=== PATIENT | male | born 1940 | race Caucasian/White ===

== ENCOUNTER → 2017-01-14 08:39 | Outpatient (CLI) | payer MEDICARE, OTHER ==
[2013-10-27 09:25] VITALS: BMI 33.3
[~2017-01-14 08:39] MED LIST: DIFLUCAN100 MG PO; EXCEDRIN PM PO; FISH OIL 1,2001 CA1 PO; FLEXERIL10 MG PO; LOTENSIN HCT 201 TA1 PO; MAXZIDE-25 MG T1 TAB PO; NORCO 10/325 TA1 TA1 PO; PRILOSEC20 MG PO; VITAMIN B-12 PO; VITAMIN D31000 UNIT PO; VITAMIN PO; XANAX0.25 MG PO; ZOLOFT25 MG PO; ZYLOPRIM300 MG PO
[2017-01-14 11:11] LABS: ALBUMIN 3.4 g/dL (3.4-5.0); BILIRUBIN - DIRECT 0.13 mg/dL (0.00-0.30); BILIRUBIN - INDIRECT 0.47 mg/dL (0.00-1.00); BILIRUBIN - TOTAL 0.6 mg/dL (0.2-1.3); PROTEIN - SERUM 7.1 g/dL (6.4-8.2)
== END | disposition home or self-care (01) ==
LOC: D.RT 08:39
PROVIDERS: Internal Medicine Pulmonary Disease
DX: J84.10 Pulmonary fibrosis, unspecified (principal)

== ENCOUNTER → 2017-06-17 12:07 | Outpatient (CLI) | payer MEDICARE, OTHER ==
[2013-10-27 09:25] VITALS: BMI 33.3
== END | disposition home or self-care (01) ==
LOC: D.RAD 11:15
DX: J95.851 Ventilator associated pneumonia (principal)

== ENCOUNTER → 2017-10-07 10:14 | Outpatient (CLI) | payer MEDICARE, OTHER ==
[2013-10-27 09:25] VITALS: BMI 33.3
[~2017-10-07 10:14] MED LIST changes: +BAYER CHEWABLE81 MG PO; +ELIQUIS2.5 MG PO; +GABAPENTIN100 MG PO; +LIPITOR20 MG PO; +MELATONIN10 M1 PO; +MIRALAX17 GM PO; +NAPROXEN SODIU550 M1 PO; +PLAVIX75 MG PO; +PREDNISONE10 MG PO; +XARELTO15 MG PO
[2018-01-12 00:16] VITALS: BMI 28.1
== END | disposition home or self-care (01) ==
LOC: D.RAD 08-12 10:15
DX: J84.10 Pulmonary fibrosis, unspecified (principal)

== ENCOUNTER 2018-01-07 07:52 | Inpatient (IN) | payer MEDICARE, OTHER ==
[~2018-01-07] VITALS: Ht 190.5 cm; Wt 102.1 kg
--- NOTE | ~2018-01-07 | HEMODYNAMI ---
PATIENT:RITA AVILA MEDICAL RECORD: [id number] : 38 LOCATION:[address] [facility]# [id number] ADMISSION DATE: 01/08/18 Generatedon:01/10/20188:46 Patient name: RITA AVILA Patient #: [id number] SS N: : 1940 Date of study: 01/10/2018 Page: Of Hemodynamic Procedure Report Patient Data Patient Demographics Procedure consent was obtained First Name: RITA Gender: Male Last Name: AUSTIN : 1940 Patient #: [id number] Age: 77 year(s) Race: Unknown Additional ID: [id number] Contact details [address]: [address] [place] [address] State: [place] City: [place] Zip code: [address] Past Medical History Allergies: No known allergies Admission Admission Data Admission Date: 01/08/2018 Admission Time: 9:14 Room #: D2125 Lab Results Lab Result Date: 01/10/2018 Lab Result Time: 4:49 Biochemistry Name Units Result Min Max BUN mg/dl 23 --(----)-* 7 18 Creatinine mg/dl 1 --(--*-)-- 0.6 1.3 CBC Name Units Result Min Max Hematocrit % 39 *-(----)-- 42 54 Hemoglobin g/dl 13.1 -*(----)-- 13.5 17.5 Procedure Procedure Types Cath Procedure Diagnostic Procedure LHC LH w/Coronaries PCI Procedure Coronary Stent Coronary Stent Initial Miscellaneous Procedures Moderate Sedation up to 15 minutes Procedure Description Procedure Date Procedure Date: 01/10/2018 Procedure Start Time: 8:16 Procedure End Time: 8:44 Procedure Staff Name Function Colby Servin MD Performing Physician Renny Cr RT Monitor Gina Maza RT Scrub Vanessa Urrutia RN Nurse Procedure Data Cath Procedure Fluoroscopy Diagnostic fluoroscopy Total fluoroscopy Time: 6.4 time: 6.4 min min Diagnostic fluoroscopy Total fluoroscopy dose: dose: 1689 mGy 1689 mGy Contrast Material Contrast Material Type Amount (ml) Isovue 300 94 Entry Location Entry Primary Successful Side Size Upsize Upsize Entry Closure Donovan ccessful Closure Location (Fr) 1 (Fr) 2 (Fr) Remarks Device Remarks Radial Right 6 Fr Mechanical artery Short Compression Estimated blood loss: 10 ml Diagnostic catheters Device Type Used For End Catheter Placement DIAGNOSTIC Anthony 110cm 5 Procedure Fr catheter ([id number]) Procedure Complications No complications Procedure Medications Medication Administration Route Dosage Oxygen NC 3 l/min Lidocaine 2% added to field 20 Heparin Flush Bag added to field 2 bags (1000units/500ml NS) 0.9% NaCl I.V. 100 ml/hr Versed I.V. 1 mg Fentanyl I.V. 25 mcg Radial Cocktail I.A. 1 syringe (Verapomil 2mg/Nitro 400mcg/Heparin 1500units) Angiomax (bolus) I.V. 15 ml Angiomax Drip I.V. drip 35.7 ml/hr (250mg/50ml NS) (Standard) Angiomax Drip 35.7 ml/hr (250mg/50ml NS) (Standard) Plavix P.O. 600 mg Hemodynamics Rest HGB: 13.1 (g/dl) Heart Rate: 38 (bpm) Pressure Samples Time Site Value (mmHg) Purpose Heart Use Rate(bpm) 8:19 AO 94/56(74) Pullback 85 8:19 LV 100/4,4 Pullback 85 Gradients Valve Time Site 1 Site 2 Mean SEP/DFP Peak To Heart Use (mmHg) (sec/min) Peak Rate (mmHg) (bpm) Aortic 8:19 LV AO 15 17 6 85 100/4,4 94/56(74) Calculations Valve P-P Mean Valve Index Valve Source Name Gradient Area Flow (cm2) Aortic 6 15 6 15 Snapshots Pre Cath Intra NCS Post Cath Vital Signs Time Heart Resp SPO2 etCO2 NIBP (mmHg) Rhythm Pain Sedation Rate (ipm) (%) (mmHg) Status Level (bpm) 8:10:15 84 19 93 30.1 156/110(136) NSR 0 (11) 10(A) , No pain 8:15:04 87 13 92 0 146/92(127) NSR 0 (11) 10(A) , No pain 8:19:49 105 13 92 0 109/68(95) NSR 0 (11) 9(A) , No pain 8:24:29 94 12 90 16.5 111/74(84) NSR 0 (11) 9(A) , No pain 8:29:45 99 12 91 24.1 124/68(94) NSR 0 (11) 9(A) , No pain 8:34:30 105 14 93 28.6 122/71(96) NSR 0 (11) 9(A) , No pain 8:39:10 90 16 92 30.1 131/84(111) NSR 0 (11) 10(A) , No pain 8:43:55 101 15 94 29.4 136/82(109) NSR 0 (11) 9(A) , No pain Medications Time Medication Route Dose Verified Delivered Reason Notes Effectiveness by by 8:09:32 Oxygen NC 3 l/min Colby Buffie used for Gareth Urrutia RN procedure 8:09:41 Lidocaine 2% added to field 20ml Colby Cloby for local vial Gareth Servin MD anesthetic 8:09:47 Heparin Flush added to field 2 bags Colby Colby used for Bag Gareth Servin MD procedure (1000units/500ml NS) 8:09:56 0.9% NaCl I.V. 100 Colby Buffie Per physic laurie ml/hr Gareth Urrutia RN, MD 8:14:15 Versed I.V. 1 mg Colby Buffie for sedati on Gareth Urrutia RN, MD 8:14:22 Fentanyl I.V. 25 mcg Colby Buffie for sedati on Gareth Urrutia RN, MD 8:17:59 Radial Cocktail I.A. 1 Colby Colby for (Verapomil syringe Gareth Servin MD vasodilation 2mg/Nitro 400mcg/Heparin 1500units) 8:25:01 Angiomax (bolus) I.V. 15 ml Colby Buffie for Gareth Urrutia RN anticoagulation 8:27:32 Angiomax Drip I.V. drip 35.7 Colby Buffie for (250mg/50ml NS) ml/hr Gareth Urrutia RN anticoagulation (Standard) 8:37:22 Angiomax Drip I.V. 35.7 Colby Buffie for (250mg/50ml NS) drip-discontinued ml/hr Gareth Urrutia RN anticoagulation (Standard) 8:40:23 Plavix P.O. 600 mg Colby Urrutia RN antiplatelet MD therapy Procedure Log Time Note 7:51:43 Informed consent obtained and on chart 7:53:57 Diagnostic Cath status Elective 7:53:59 Gina Maza RT(R) sent for patient. Start room use. 7:53:59 Time tracking: Regular hours 7:54:03 Plan of Care:Hemodynamics will remain stable., Cardiac rhythm will remain stable., Comfort level will be maintained., Respiratory function will remain adequate., Patient/ family verbilizes understanding of procedure., Procedure tolerated without complication., Recovers from procedure without complications.. 7:55:04 H&P Date Dictated: 01/09/2018 Within 30 days and on chart.. 7:56:37 Lab Result : Hemoglobin 13.1 g/dl 7:56:37 Lab Result : Creatinine 1 mg/dl 7:56:37 Lab Result : BUN 23 mg/dl 7:56:37 Lab Result : Hematocrit 39 % 7:58:47 Patient received from PCU to CCL 1 Alert and oriented. Tansferred to table in Supine position. 7:58:48 Warm blankets applied, and kerri hugger turned on for patient comfort. 7:58:48 Correct patient and procedure confirmed by team. 7:58:50 ECG and BP/O2 sat monitors applied to patient. 8:09:13 Vital chart was started 8:09:16 Baseline sample Acquired. 8:09:32 Oxygen 3 l/min NC was administered by Vanessa Urrutia RN; used for procedure; 8:09:41 Lidocaine 2% 20ml vial added to field was administered by Colby Servin MD; for local anesthetic; 8:09:46 Rhythm: atrial fibrillation 8:09:47 Heparin Flush Bag (1000units/500ml NS) 2 bags added to field was administered by Colby Servin MD; used for procedure; 8:09:48 Full Disclosure recording started 8:09:49 Pre-procedure instructions explained to patient. 8:09:50 Pre-op teaching completed and patient verbalized understanding. 8:09:52 Family in waiting room. 8:09:54 Patient NPO since Midnight. 8:09:56 0.9% NaCl 100 ml/hr I.V. was administered by Vanessa Urrutia RN; Per physician; 8:09:59 Patient allergic to No known allergies 8:10:02 Is the patient allergic to Iodine/contrast media? No. 8:10:05 Is patient on blood thinner?Yes 8:10:08 ACC The patient was administered the following blood thiners within the last 24 hours: ACCPlavix 8:10:11 Patient diabetic? No. 8:10:14 Previous problem with sedation/anesthesia? Yes ? 8:10:16 Previous problem with sedation/anesthesia? No ? 8:10:17 Snore? Yes 8:10:18 Sleep apnea? No 8:10:19 Deviated septum? No 8:10:19 Opens mouth fully? Yes 8:10:20 Sticks out tongue? Yes 8:10:26 Airway obstruction? Yes copd/PE 8:10:29 Dentures? No ? 8:11:22 Modified Alex's test Ulnar < 7 seconds 8:11:24 Patient pain scale 0/10 ?. 8:11:29 IV patent on arrival in right forearm with 0.9% NaCl at [facility]. 8:11:32 Lab results completed and on chart. 8:11:35 Right Radial & Right Groin area was prepped with chlora-prep and draped in sterile fashion 8:11:36 Alarms reviewed by R. N. 8:11:36 Sharps counted by scrub and verified by R.N. 8:11:39 Use device set Radial Dx or PCI 8:11:41 ACIST Syringe (31926) opened to sterile field. 8:11:43 ACIST Hand Control (67263) opened to sterile field. 8:11:43 ACIST Manifold (06681) opened to sterile field. 8:11:47 Tegaderm 4 x 4 (1626W) opened to sterile field. 8:11:49 MBrace Wrist Support ([id number]) opened to sterile field. 8:11:49 Bag Decanter (2001S) opened to sterile field. 8:11:50 Medline Cath Pack ([id number]) opened to sterile field. 8:11:51 DIAGNOSTIC WIRE .035 260cm J wire (466955) opened to sterile field. 8:11:54 SHEATH 6FR Slender ([id number]) opened to sterile field. 8:12:00 Physician arrived 8:12:01 --------ALL STOP TIME OUT------ 8:12:02 Final Timeout: patient, procedure, and site verified with staff and physician. All members of the team are in agreement. 8:12:03 Right Radial & Right Groin site verified by team. 8:12:14 Physical assessment completed. ASA score P 3 - A patient with severe systemic disease as per Cobly Servin MD. 8:12:18 Sedation plan: IV Moderate Sedation Medication:Versed, Fentanyl 8:14:15 Versed 1 mg I.V. was administered by Vanessa Urrutia RN; for sedation; 8:14:22 Fentanyl 25 mcg I.V. was administered by Vanessa Urrutia RN; for sedation; 8:16:54 Procedure started. 8:16:58 Local anesthetic to right radial artery with Lidocaine 2% by Colby Servin MD.INITIAL ACCESS ONLY 8:17:00 A 6 Fr Short sheath was inserted into the Right Radial artery 8:17:54 Zero performed for pressure channel P1 8:17:59 Radial Cocktail (Verapomil 2mg/Nitro 400mcg/Heparin 1500units) 1 syringe I.A. was administered by Colby Servin MD; for vasodilation; 8:18:18 A DIAGNOSTIC Anthony 110cm 5 Fr catheter (284368) was advanced over the wire and used for Procedure. 8:19:03 LV gram done using HERRERA 8:19:06 Injector settings: Ml/sec: 12, Volume: 8, 8:19:17 LV hemodynamics recorded. 8:19:43 EF : 60 % 8:20:44 LCA angiography performed. 8:21:45 RCA angiography performed. 8:22:25 Catheter removed. 8:24:10 GUIDE 6FR EBU 4.0 guide catheter ([id number]) opened to sterile field. 8:24:11 INFLATOR Merit BasixCompak (YL4033) opened to sterile field. 8:24:12 COPILOT Valve Control (6656444) opened to sterile field. 8:24:24 6 Fr ebu 4 guide catheter was inserted over the wire 8:24:38 CHOICE PT Extra Support 182cm wire ([id number]) opened to sterile field. 8:25:01 Angiomax (bolus) 15 ml I.V. was administered by Buffie Urrutia RN; for anticoagulation; 8:25:35 choice pt wire advanced. 8:26:43 Wire advanced across lesion. 8:27:32 Angiomax Drip (250mg/50ml NS) (Standard) 35.7 ml/hr I.V. drip was administered by Vanessa Urrutia RN; for anticoagulation; 8:31:04 Inflation Number: 1 A CANDELARIO RX 2.5 x 22 stent ([id number]) was prepped and advanced across the Mid LAD. The stent was deployed at 20 LUNA for 0:16 (min:sec). 8:31:43 Stent catheter was removed intact over wire. 8:34:21 Inflation Number: 1 A CANDELARIO RX 3.0 x 15 stent ([id number]) was prepped and advanced across the Prox LAD. The stent was deployed at 18 LUNA for 0:12 (min:sec). 8:34:43 Inflation number: 2 The stent balloon was then re-inflated across the Mid LAD to 18 LUNA for 0:09 (min:sec). 8:35:18 Stent catheter was removed intact over wire. 8:35:25 Wire removed. 8:35:26 Guide catheter removed. 8:36:37 TR BAND Large ([id number]) opened to sterile field. 8:37:22 Angiomax Drip (250mg/50ml NS) (Standard) 35.7 ml/hr I.V. drip-discontinued was administered by Vanessa Urrutia RN; for anticoagulation; 8:37:33 Sheath removed intact; hemostasis achieved with Mechanical Compression to the Right Radial artery. 8:37:49 Procedure ended.(Physican Out) 8:40:23 Plavix 600 mg P.O. was administered by Vanessa Urrutia RN; for antiplatelet therapy; 8:40:41 Fluoroscopy time 06.40 minutes. 8:40:44 Fluoroscopy dose: 1689 mGy 8:40:44 Flurop Dose total: 1689 8:40:48 Contrast amount:Isovue 300 94ml. 8:40:49 Sharps counted by scrub and verified by R.N. 8:40:52 TR band inflated with 10cc of air. 8:41:05 Insertion/operative site no bleeding no hematoma. 8:41:13 Post right radial artery:stable, soft, clean and dry 8:41:14 Post Procedure Pulses reassessed and unchanged 8:41:17 Post-procedure physical assessment completed. ASA score P 3 - A patient with severe systemic disease as per Colby Servin MD. 8:41:19 Post procedure rhythm: unchanged. 8:41:22 Estimated blood loss: 10 ml 8:41:23 Post procedure instruction explained to patient.Patient verbalizes understanding. 8:41:31 Patient needs reinforcement of post procedure teaching. 8:41:44 Procedure type changed to Cath procedure, Diagnostic procedure, LHC, LHC w/Coronaries, PCI procedure, Coronary Stent, Coronary Stent Initial, Miscellaneous Procedures, Moderate Sedation up to 15 minutes 8:43:21 IV Extension Set opened to sterile field. 8:43:53 Procedure and supply charges have been captured, reviewed, submitted and are correct. 8:43:55 Procedure Complication : No complications 8:43:57 Vital chart was stopped 8:43:59 See physician's report for complete and final results. 8:44:00 Report given to PCU. 8:44:07 Patient transfered to PCU with Stretcher. 8:44:09 Procedure ended. 8:44:09 Full Disclosure recording stopped 8:44:14 End room use (Document Last) Intervention Summary Intervention Notes Time ActionType Lesion and Equipment Used Action# Pressure Duration Attributes 8:31:04 Place stent Mid LAD CANDELARIO RX 2.5 x 1 20 00:16 22 stent ([id number]) 8:34:21 Place stent Prox LAD CANDELARIO RX 3.0 x 1 18 00:12 15 stent ([id number]) 8:34:43 Reinflate Mid LAD CANDELARIO RX 3.0 x 2 18 00:09 stent 15 stent balloon ([id number]) Device Usage Item Name Manufacture Quantity Catalog Number Hospital Part Current M inimal Lot# / Charge Number Stock Stock Serial# Code ACIST Syringe Acist 1 30608 220683 873859 409062 2 0 (87894) Medical Systems Inc ACIST Hand Acist 1 43132 973723 601774 313211 5 Control Medical (08939) Systems Inc ACIST Manifold Acist 1 27896 423477 499141 105575 5 (22269) Medical Systems Inc Tegaderm 4 x 4 3M 1 1626W 012099 996952 977959 5 (1626W) MBrace Wrist Advanced 1 140-0250-00 407070 75223 745275 5 Support Vascular ([id number]) Dynamics Bag Decanter Microtek 1 2001S 064669 17762 462566 5 () Medical Inc. Medline Cath Cardinal 1 [id number] 757755 30805 365777 5 [facility] ([id number]) DIAGNOSTIC St Clive 1 468484 380732 958304 906175 3 0 WIRE .035 260cm J wire (631000) SHEATH 6FR Terumo 1 [id number] 311245 671745 743604 4 0 Slender ([id number]) DIAGNOSTIC Terumo 1 405013 212514 809859 856374 5 Anthony 110cm 5 Fr catheter (920137) GUIDE 6FR EBU Medtronic 1 [id number] 064729 42642 646638 1 4.0 guide catheter ([id number]) INFLATOR Merit Merit 1 LO9274 963035 352103 217042 1 5 [facility] (QN0934) COPILOT Valve Mcmullen 1 2424243 686864 519426 197924 5 Control Vascular (9678359) CHOICE PT Al[place]aton 1 [id number] 307540 681168 466890 5 Extra Support Scientific 182cm wire ([id number]) CANDELARIO RX 2.5 x Medtronic 1 [id number] 362086 8145479 398265 5 [id number] 22 stent ([id number]) CANDELARIO RX 3.0 x Medtronic 1 [id number] 573181 0992052 057016 5 [id number] 15 stent ([id number]) TR BAND Large Terumo 1 [id number] 103970 135605 480671 4 0 ([id number]) IV Extension Hospira 1 09683-88 431850 91962 246865 5 Set Signature Audit [place] Stage Time Signature Unsigned Intra-Procedure 01/10/2018 Renny Cr 8:46:41 AM RT(R) Signatures Monitor : Renny Cr RT Signature : Date : Time : [facility] [address] [place] [address]
--- NOTE | ~2018-01-07 | EC ---
PATIENT:RITA AVILA DATE OF SERVICE: 01/08/18 SEX: M MEDICAL RECORD: [id number] DATE OF : 38 LOCATION:D. D.212 AGE OF PATIENT: 77 ADMISSION DATE: 01/08/18 REFERRING PHYSICIAN: INTERPRETING PHYSICIAN: SWAPNIL MCGUIRE MD ECHOCARDIOGRAM REPORT ECHO CHARGES 4 ECHO COMPLETE CLINICAL DIAGNOSIS: SOB ECHOCARDIOGRAPHIC MEASUREMENTS (adult normal given) AC root (d.<3.7cm) 3.8 cm LV Septum d (<1.2 cm> 1.4 cm Valve Excursion 0.9 cm LV Septum (systole) 2.0 cm Left Atria (s.<4.0cm> 5.2 cm LVPW d(<1.2cm) 1.3 cm RV (d.<2.3cm) 3.2 cm LVPW (sytole) 2.0 cm LV diastole(<5.6CM) 4.9 cm MV E-F(>70mm/sec) cm LV systole 2.7 cm LVOT Diameter 1.8 cm MV exc.(>10mm) cm Est.ejection fraction (50-75%) % Pericardial Effusion N DOPPLER: LVIT cm/sec A cm/sec E 136 cm/sec LA cm/sec RVSP 56.0 mmHg LVOT 112 cm/sec AOP1/2T m/s Asc. Ao 205 cm/sec RVOT 71.0 cm/sec RA cm/sec PA 100 cm/sec AV Gradient Peak 17.0 mmHg AV Mean 8.6 mmHg AV Area 1.3 cm MV Gradient Peak 13.2 mmHg MV Mean 2.7 mmHg MV Area cm COMMENTS: Hand Spring Repairer: Ruperto SAGE [place] Wrapping Machine Tender: 1 Dr. Mcguire TAPE# PACS DATE OF SERVICE: 01/08/2018 FINDINGS: 1. Left ventricular chamber size is within normal limits. Left ventricular systolic function is normal. Overall ejection fraction estimated at 60%. 2. The left atrium is moderately enlarged at 5.2 cm. Right atrium and right ventricular chamber sizes are as well moderately dilated. 3. Valvular structures have normal structure and motion. 4. Doppler interrogation reveals mild aortic insufficiency, mild mitral regurgitation, moderate tricuspid regurgitation. No other valvular ECHOCARDIOGRAM REPORT [id number] RITA AVILA insufficiency or stenosis. Pulmonary systolic pressure is elevated estimated at 56 mmHg. 5. No evidence of pericardial effusion or left ventricular thrombus. TRANSINT:[id number] Voice Confirmation ID: [id number] DOCUMENT ID: [id number] SWAPNIL MCGUIRE MD at 1800 CC: [id number] DICTATION DATE: 01/08/18 1130 CORRECTIONAL COUNSELOR/CASE MANAGER: 01/08/18 1254 ADM IN [facility] [address] [place] [address]
--- NOTE | ~2018-01-07 | CN ---
PATIENT NAME:RITA AVILA MEDICAL RECORD: [id number] : 38 LOCATION:D. D.2125 ADMIT DATE: 01/08/18 ACCOUNT: [id number] CONSULTING PHYSICIAN: SWAPNIL REYES MD REFERRING PHYSICIAN: JONO BEASLEY MD DATE OF CONSULTATION: 01/08/2018 Cardiology Consultation DIAGNOSES: 1. Shortness of breath. 2. Chronic obstructive pulmonary disease. HISTORY OF PRESENT ILLNESS: This is a gentleman with no previous cardiac history who presents with shortness of breath, dyspnea on exertion. He has a history of COPD, asthma as well in the past. No cardiac history. EKG is with no changes. Troponin is normal. PHYSICAL EXAMINATION: GENERAL APPEARANCE: Well-nourished, well-developed, appears stated age. Level of distress, comfortable. PSYCHIATRIC: Mental status, alert, normal affect. Orientation, oriented to time, place and person. EYES: Lids and conjunctiva, noninjected. No discharge, no pallor. ENT: Lips, teeth, gums, normal dentition. Oropharynx, no cyanosis, no pallor. NECK: Carotid arteries, bilateral normal upstroke, no bruits, no thrills. JUGULAR VEINS: No jugular venous pressure or distention. CERVICAL LYMPH NODES: Nontender, nonenlarged. THYROID: Not enlarged. Nontender. No nodules. LUNGS: Respiratory effort, unlabored. CHEST: Normal curvature. No thoracic deformity. No chest wall tenderness. Percussion, resonant. Auscultation, clear. No wheezes, no rales, no rhonchi. CARDIOVASCULAR: Precordial exam, nondisplaced. No heaves or pericardial thrills. Rate and rhythm, regular. Heart sounds, normal S1, normal S2. No S3, no gallop, no rub. Systolic murmur, not heard. Diastolic murmur, not heard. EXTREMITIES: No cyanosis, no edema. Peripheral pulses, full and equal in all extremities, except as noted. No bruits appreciated. ABDOMEN: Soft, nondistended. Normal aorta. No bruit. Nontender. No masses. Liver, nontender, no hepatomegaly. Spleen, nontender, no splenomegaly. MUSCULOSKELETAL: No joint tenderness. No joint swelling. No erythema. NEUROLOGICAL: Normal gait, normal strength, normal tone. SKIN: Warm and dry. OVERALL IMPRESSION: Most likely this is noncardiac. We will get an echocardiogram at this point, no other cardiac workup treatment is necessary. TRANSINT:[id number] Voice Confirmation ID: [id number] DOCUMENT ID: [id number] CONSULT REPORT [id number] RITA AVILA JEFFREY MD at 1800 CC: [id number] DICTATION DATE: 01/08/18 1003 BRAND MARKETING MANAGER: 01/08/18 1211 ADM IN [place] [address] [place] [address]
--- NOTE | ~2018-01-07 | CN ---
PATIENT NAME:RITA GAMEZ MEDICAL RECORD: [id number] : 38 [place] [place] DATE: 01/07/18 ACCOUNT: [id number] CONSULTING PHYSICIAN: INDRA REYNA MD REFERRING PHYSICIAN: LATIA BEASLEY MD DATE OF CONSULTATION: 01/07/2018 Pulmonary Consultation CONSULT REQUESTING PHYSICIAN: Latia Beasley MD REASON FOR CONSULTATION: Pulmonary embolism, COPD. HISTORY OF PRESENT ILLNESS: Mr. Gamez is a 77-year-old gentleman who has a history of COPD, interstitial lung disease. According to the patient, yesterday, he has worsening shortness of breath and he was very tired and lethargic. He was more sleepy. Denies any leg pain. There was some chest pain. The patient came into the ER and evaluated. It was found out he has a pulmonary embolism. Denies any fever or chills. He has a bronchitic cough without much sputum production. REVIEW OF SYSTEMS: As in history of present illness. PAST MEDICAL HISTORY: 1. COPD. 2. Interstitial lung disease. 3. Anxiety. 4. Hypertension. 5. Atrial fibrillation. He is seeing Dr. Magallanes in [place]. PAST SURGICAL HISTORY: 1. Cholecystectomy. 2. Fistula repair 27 years ago. ALLERGIES: There are no known drug allergies. PRESENT MEDICATIONS: On gridComm is reviewed. PERSONAL AND SOCIAL HISTORY: The patient is an ex-smoker. He is a nondrinker. FAMILY HISTORY: Noncontributory. PHYSICAL EXAMINATION: GENERAL: Now, the patient is lying comfortably, but he is not in acute respiratory distress. VITAL SIGNS: The blood pressure 147/84, pulse is 85, respirations 22, SpO2 98% on 2 liters nasal cannula. HEENT: Conjunctivae pink, sclerae nonicteric. NECK: Supple, no JVD. CHEST: Chest excursion is minimal on both sides. There is a basal crackle. No wheezing. HEART: Rhythm regular. Normal sound. No murmur. ABDOMEN: Soft, bowel sounds present. No hepatosplenomegaly. RECTAL: Deferred. EXTREMITIES: No cyanosis, no clubbing, no pedal edema. CONSULT REPORT [id number] RITA GAMEZ CENTRAL NERVOUS SYSTEM: The patient is awake and alert. There is no obvious cranial nerve abnormality. The gait was not tested. IMAGING: CTA of the chest. There is a small pulmonary emboli in the right lower lobe. There are some fibrotic changes. Cardiomegaly with patchy ground-glass attenuation in the lung, may correspond to edema. LABORATORY DATA: CBC: WBC 6, hemoglobin 14.2, hematocrit 43.1, the platelet count 139. Chemistry: Sodium 143, potassium 3.7, BUN 27, creatinine is 1. D-dimer is 1.10. IMPRESSION: 1. Acute hypoxic respiratory failure. 2. Pulmonary embolism, right lower lobe. 3. Interstitial lung disease. 4. Chronic obstructive pulmonary disease without exacerbation. 5. Atrial fibrillation. RECOMMENDATION: 1. Continue Lovenox subQ. 2. Methylprednisolone IV. 3. Albuterol/ipratropium nebulizer. 4. Start him on Advair. 5. Follow up labs and chest radiograph in the morning. Dr. Beasley, thank you for involving me in the care of Mr. Gamez. TRANSINT:[id number] Voice Confirmation ID: [id number] DOCUMENT ID: [id number] INDRA REYNA MD CC: LATIA BEASLEY MD [id number] DICTATION DATE: 01/07/18 1855 SAP CRM DEVELOPER: 01/08/18 0448 ADM IN [facility] [address] [place] [address]
[~2018-01-07 07:52] MED LIST changes: -BAYER CHEWABLE81 MG PO; -ELIQUIS2.5 MG PO; -GABAPENTIN100 MG PO; -LIPITOR20 MG PO; -MELATONIN10 M1 PO; -MIRALAX17 GM PO; -NAPROXEN SODIU550 M1 PO; -PLAVIX75 MG PO; -PREDNISONE10 MG PO; -XARELTO15 MG PO
[2018-01-07 08:36] LABS: BASOPHILS 0.3 % (0-2); EOSINOPHILS 3.2 % (0-7); HEMATOCRIT 43.1 % (42.0-54.0); HEMOGLOBIN 14.2 g/dL (13.5-17.5); IMMATURE GRANULOCYTES 0.2 % (0-5); MCH 31.3 pg (26.0-34.0); MCHC 32.9 g/dL (31.0-37.0); MCV 94.9 fL (80.0-100.0); MEAN PLATELET VOLUME 10.2 fL (7.4-10.4); MONOCYTES 7.8 % (2-11); NEUTROPHILS 73.5 % (40-80); RBC 4.54 10x6/uL (4.20-6.10)
[2018-01-07 08:37] LABS: PLATELET COUNT 139 10x3/uL (130-400)
[2018-01-07 08:48] LABS: ALBUMIN 3.3 g/dL (3.4-5.0); ALKALINE PHOSPHATASE 76 U/L (46-116); ALT (SGPT) 20 U/L (10-68); CALC OSMOLALITY 289 mosm/kg (275-300); CALCIUM 8.6 mg/dL (8.5-10.1); CARBON DIOXIDE 31.9 mmol/L (21.0-32.0); CHLORIDE - SERUM 105 mmol/L (98-107); GLUCOSE 98 mg/dL (74-106); POTASSIUM - SERUM 3.7 mmol/L (3.5-5.1); PROTEIN - SERUM 6.5 g/dL (6.4-8.2); SODIUM 143 mmol/L (136-145); UREA NITROGEN 27 mg/dL (7-18); eGFR NON AFRICAN AMERICAN 77 mL/min (90-120)
[2018-01-07 08:57] LABS: PRO BNP 1259 pg/mL (0-450); TROPONIN-I < 0.017 ng/mL (0.000-0.060)
[2018-01-07 09:25] LABS: CKMB 0.9 U/L (0.0-3.6); CREATINE KINASE 27 UL (21-232)
[2018-01-07 15:00] LABS: CKMB 0.6 U/L (0.0-3.6); CREATINE KINASE 18 UL (21-232); TROPONIN-I < 0.017 ng/mL (0.000-0.060)
[2018-01-07 20:43] LABS: CKMB 0.7 U/L (0.0-3.6); CREATINE KINASE 20 UL (21-232); TROPONIN-I < 0.017 ng/mL (0.000-0.060)
[2018-01-08 02:24] LABS: CKMB 0.7 U/L (0.0-3.6); CREATINE KINASE 21 UL (21-232)
[2018-01-08 02:27] LABS: TROPONIN-I < 0.017 ng/mL (0.000-0.060)
[2018-01-08 07:20] LABS: BASOPHILS 0 % (0-2); EOSINOPHILS 0 % (0-7); HEMATOCRIT 42.9 % (42.0-54.0); HEMOGLOBIN 14.2 g/dL (13.5-17.5); LYMPHOCYTES 12.8 % (15-50); MCH 31.3 pg (26.0-34.0); MCHC 33.1 g/dL (31.0-37.0); MCV 94.7 fL (80.0-100.0); MEAN PLATELET VOLUME 10.2 fL (7.4-10.4); MONOCYTES 1.3 % (2-11); NEUTROPHILS 85.9 % (40-80); PLATELET COUNT 141 10x3/uL (130-400); RBC 4.53 10x6/uL (4.20-6.10); WBC 3.9 10x3/uL (4.8-10.8)
[2018-01-08 07:40] LABS: ANION GAP 10.1 mmol/L (8-16); CALCIUM 8.5 mg/dL (8.5-10.1); CARBON DIOXIDE 31.9 mmol/L (21.0-32.0); CREATININE - SERUM 1.1 mg/dL (0.6-1.3)
[2018-01-08] MEDS ORDERED: ELIQUIS2.5 MG PO (16:48)
[2018-01-08] MEDS ORDERED: GABAPENTIN100 MG PO (17:30)
[2018-01-08] MEDS ORDERED: NAPROXEN SODIU550 M1 PO (17:34)
[2018-01-08] MEDS ORDERED: MELATONIN10 M1 PO (17:34)
[2018-01-08] MEDS ORDERED: MIRALAX17 GM PO (17:35)
[2018-01-08 18:02] VITALS: BMI 28.1
[2018-01-08 20:00] VITALS: BP 139/92
[2018-01-09] VITALS: BP 136/60
[2018-01-09 04:00] VITALS: BP 118/60
[2018-01-09 08:35] VITALS: BP 89/61
[2018-01-09 12:18] LABS: CA 19-9 16 U/mL (0-35); CEA 9.2 ng/mL (0.0-4.7)
[2018-01-09 12:37] VITALS: BP 128/75
[2018-01-09 12:53] VITALS: BMI 28.1
[2018-01-09 16:01] VITALS: BP 134/73
[2018-01-09 16:13] VITALS: Ht 190.5 cm; Wt 102.1 kg
[2018-01-09 17:14] LABS: ALPHA FETOPROTEIN -(TUMOR MRK) 1.8 ng/mL (0.0-8.3)
[2018-01-09 17:24] LABS: BASOPHILS 0 % (0-2); EOSINOPHILS 0 % (0-7); HEMATOCRIT 40.6 % (42.0-54.0); HEMOGLOBIN 13.5 g/dL (13.5-17.5); IMMATURE GRANULOCYTES 0.2 % (0-5); LYMPHOCYTES 2.8 % (15-50); MCH 31.5 pg (26.0-34.0); MCHC 33.3 g/dL (31.0-37.0); MCV 94.9 fL (80.0-100.0); MEAN PLATELET VOLUME 10.9 fL (7.4-10.4); MONOCYTES 3.8 % (2-11); NEUTROPHILS 93.2 % (40-80); PLATELET COUNT 153 10x3/uL (130-400); RBC 4.28 10x6/uL (4.20-6.10); RDW 14.3 % (11.5-14.5)
[2018-01-09 17:28] LABS: WBC 8.3 10x3/uL (4.8-10.8)
[2018-01-09 17:33] LABS: CALC OSMOLALITY 281 mosm/kg (275-300); CALCIUM 8.3 mg/dL (8.5-10.1); CARBON DIOXIDE 29.9 mmol/L (21.0-32.0); CHLORIDE - SERUM 101 mmol/L (98-107); GLUCOSE 117 mg/dL (74-106); SODIUM 138 mmol/L (136-145); UREA NITROGEN 26 mg/dL (7-18); eGFR NON AFRICAN AMERICAN 77 mL/min (90-120)
[2018-01-09 17:35] LABS: POTASSIUM - SERUM 3.9 mmol/L (3.5-5.1)
[2018-01-09 21:38] VITALS: BP 129/72
[2018-01-10 01:44] VITALS: BP 143/81
[2018-01-10 05:00] LABS: BASOPHILS 0 % (0-2); EOSINOPHILS 0 % (0-7); HEMOGLOBIN 13.1 g/dL (13.5-17.5); IMMATURE GRANULOCYTES 0.3 % (0-5); LYMPHOCYTES 5.2 % (15-50); MCH 31.6 pg (26.0-34.0); MCHC 33.6 g/dL (31.0-37.0); MEAN PLATELET VOLUME 10.9 fL (7.4-10.4); MONOCYTES 3.6 % (2-11); NEUTROPHILS 90.9 % (40-80); PLATELET COUNT 143 10x3/uL (130-400); RBC 4.15 10x6/uL (4.20-6.10); RDW 14.4 % (11.5-14.5)
[2018-01-10 05:10] LABS: WBC 6.1 10x3/uL (4.8-10.8)
[2018-01-10 05:16] LABS: CALC OSMOLALITY 280 mosm/kg (275-300); CALCIUM 8.1 mg/dL (8.5-10.1); CARBON DIOXIDE 30.4 mmol/L (21.0-32.0); CHLORIDE - SERUM 101 mmol/L (98-107); GLUCOSE 125 mg/dL (74-106); POTASSIUM - SERUM 4.1 mmol/L (3.5-5.1); SODIUM 138 mmol/L (136-145); UREA NITROGEN 23 mg/dL (7-18); eGFR NON AFRICAN AMERICAN 77 mL/min (90-120)
[2018-01-10 05:40] VITALS: BP 133/90
[2018-01-10 12:16] LABS: LUPUS - INTERPRETATION Comment: (()); LUPUS - THROMBIN TIME 23.6 sec (0.0-23.0); LUPUS - dRVVT 37.2 sec (0.0-47.0); PTT-LA 47.8 sec (0.0-51.9)
[2018-01-10] MEDS ORDERED: PLAVIX75 MG PO (13:01)
[2018-01-10] MEDS ORDERED: LIPITOR20 MG PO (13:02)
[2018-01-10] MEDS ORDERED: XARELTO15 MG PO (13:05)
[2018-01-10] MEDS ORDERED: BAYER CHEWABLE81 MG PO (13:08)
[2018-01-10] MEDS ORDERED: PREDNISONE10 MG PO (13:09)
[2018-01-10 15:37] VITALS: BP 135/92
[2018-01-11 05:27] LABS: BASOPHILS 0.1 % (0-2); EOSINOPHILS 0 % (0-7); HEMATOCRIT 40.4 % (42.0-54.0); HEMOGLOBIN 13.4 g/dL (13.5-17.5); IMMATURE GRANULOCYTES 0.4 % (0-5); LYMPHOCYTES 4.7 % (15-50); MCH 31.2 pg (26.0-34.0); MCHC 33.2 g/dL (31.0-37.0); MCV 94.2 fL (80.0-100.0); MEAN PLATELET VOLUME 10.8 fL (7.4-10.4); MONOCYTES 8.1 % (2-11); NEUTROPHILS 86.7 % (40-80); PLATELET COUNT 138 10x3/uL (130-400); RBC 4.29 10x6/uL (4.20-6.10); RDW 14.7 % (11.5-14.5); WBC 8.1 10x3/uL (4.8-10.8)
[2018-01-11 05:46] LABS: CALC OSMOLALITY 277 mosm/kg (275-300); CALCIUM 8.2 mg/dL (8.5-10.1); CARBON DIOXIDE 27.9 mmol/L (21.0-32.0); CHLORIDE - SERUM 100 mmol/L (98-107); CREATININE - SERUM 0.9 mg/dL (0.6-1.3); GLUCOSE 117 mg/dL (74-106); POTASSIUM - SERUM 4.1 mmol/L (3.5-5.1); SODIUM 136 mmol/L (136-145); UREA NITROGEN 27 mg/dL (7-18); eGFR NON AFRICAN AMERICAN 87 mL/min (90-120)
[2018-01-11 06:37] VITALS: BP 141/92
[2018-01-11 08:21] VITALS: BP 128/62
[2018-01-11 10:43] VITALS: BP 131/75
[2018-01-11] MEDS ORDERED: GABAPENTIN100 MG PO (23:41)
[2018-01-13 20:09] LABS: FACTOR II DNA ANALYSIS Negative (())
== END 2018-01-11 14:45 | disposition home or self-care (01) | DRG 246 ==
LOC: D.ER 07:52 → D.SDCHOLD 13:59 → OBSVTIME 13:59 → D.SDCHOLD 13:59 → D.M2 01-08 09:14
PROVIDERS: Family Medicine; Internal Medicine Cardiovascular Disease; Internal Medicine Hematology & Oncology
PROC: B2111ZZ Fluoroscopy of Multiple Coronary Arteries using Low Osmolar Contrast (ICD-10-PCS; 2018-01-10)
PROC: B2151ZZ Fluoroscopy of Left Heart using Low Osmolar Contrast (ICD-10-PCS; 2018-01-10)
PROC: 027035Z Dilation of Coronary Artery, One Artery with Two Drug-eluting Intraluminal Devices, Percutaneous Approach (ICD-10-PCS; principal; 2018-01-10 07:53)
PROC: 4A023N7 Measurement of Cardiac Sampling and Pressure, Left Heart, Percutaneous Approach (ICD-10-PCS; 2018-01-10 07:53)
DX: I25.10 Atherosclerotic heart disease of native coronary artery without angina pectoris (principal); I26.99 Other pulmonary embolism without acute cor pulmonale; J96.01 Acute respiratory failure with hypoxia; J84.9 Interstitial pulmonary disease, unspecified; J44.9 Chronic obstructive pulmonary disease, unspecified; I48.91 Unspecified atrial fibrillation

== ENCOUNTER 2018-01-11 18:37 | Inpatient (IN) | payer MEDICARE, OTHER ==
--- NOTE | ~2018-01-11 | OP ---
PATIENT NAME: RITA AVILA MEDICAL RECORD: [id number] :38 LOCATION:D.M2 D.2103 ADMISSION DATE:01/11/18 SURGEON: SWAPNIL REYES MD DATE OF OPERATION: 01/13/2018 PROCEDURE: DC cardioversion. INDICATION: Atrial fibrillation. IV conscious sedation was performed per anesthesia. Continuous heart rate, O2 saturation, and blood pressure monitoring all undertaken, all of which remained stable. He received one shock at 275 joules, restoring sinus rhythm. OVERALL IMPRESSION: Successful cardioversion from atrial fibrillation to normal sinus rhythm. TRANSINT:[id number] Voice Confirmation ID: [id number] DOCUMENT ID: [id number] SWAPNIL REYES MD at 1147 CC: [id number] DICTATION DATE: 01/13/18 1414 GEOLOGICAL MANAGER: 01/13/18 1513 DIS IN 01/16/18 [address] [id number] [place] [address]
--- NOTE | ~2018-01-11 | DS ---
PATIENT:RITA GAMEZ :38 MEDICAL RECORD: [id number] DISCHARGE SUMMARY ADMISSION DATE: 01/11/18 DISCHARGE DATE: 01/16/18 DIAGNOSES: 1. Atrial fibrillation. 2. History of pulmonary embolus. 3. Coronary artery disease. 4. Previous percutaneous transluminal coronary angioplasty and stent. 5. Hyperlipidemia. 6. Xarelto anticoagulation. 7. Short of breath, dyspnea on exertion. 8. Chronic obstructive pulmonary disease. HOSPITAL COURSE: Mr. Gamez has been admitted with shortness of breath, dyspnea on exertion. He has multiple reasons to be short of breath. He has a history of pulmonary embolus that was recently diagnosed. He has a history of COPD. He has a history of coronary artery disease, but this is stable, previous PTCA and stent in November. He also had atrial fibrillation with rapid ventricular response, the atrial fibrillation was treated with DC cardioversion as well as sotalol therapy, converted to sinus rhythm. He remained in sinus rhythm. His breathing improved. He remained on the anticoagulation for the pulmonary embolus. Ischemic heart disease was not an issue. He was discharged to rehab floor, continue his current medications, which included sotalol, prednisone, Xarelto, Plavix. He will follow up with [facility] as soon as he gets out of the rehabilitation. TRANSINT:[id number] Voice Confirmation ID: [id number] DOCUMENT ID: [id number] SWAPNIL REYES MD at 1148 CC: [id number] DICTATION DATE: 01/16/18 1319 SUPERVISOR WHIPPED TOPPING: 01/16/18 1343 DIS IN 01/16/18 [place] [id number]
--- NOTE | ~2018-01-11 | HP ---
PATIENT: RITA AVILA MEDICAL RECORD: [id number] ACCOUNT: [id number] LOCATION:[facility].2103 : 38 ADMISSION DATE: 01/11/18 HISTORY AND PHYSICAL EXAMINATION DIAGNOSES: 1. Atrial fibrillation with rapid ventricular response. 2. History of pulmonary embolus. 3. Coronary artery disease, previous percutaneous transluminal coronary angioplasty stent to LAD. 4. Xarelto anticoagulation times 8 weeks. 5. Hyperlipidemia. HISTORY OF PRESENT ILLNESS: This is a gentleman known to our service, followed by Dr. Servin, had a recent PTCA stent of the LAD, history of pulmonary embolus, history of atrial fibrillation. Atrial fibrillation has been present for approximately 2 months. He has not undergone DC cardioversion. He became more short of breath. His atrial fibrillation was with heart rates in the 160s, when he presented to the Emergency Room. He was previously on Cordarone. For that, Cordarone was discontinued. He was placed on sotalol 80 mg b.i.d. of sotalol, heart rate is now right at 100 beats per minute. He feels better, but he still feels somewhat short of breath. He has not had attempted DC cardioversion. He has been on Eliquis or Xarelto anticoagulation for the past 2 months. PHYSICAL EXAMINATION: GENERAL APPEARANCE: Well-nourished, well-developed, appears stated age. Level of distress, comfortable. PSYCHIATRIC: Mental status, alert, normal affect. Orientation, oriented to time, place and person. EYES: Lids and conjunctiva, noninjected. No discharge, no pallor. ENT: Lips, teeth, gums, normal dentition. Oropharynx, no cyanosis, no pallor. NECK: Carotid arteries, bilateral normal upstroke, no bruits, no thrills. JUGULAR VEINS: No jugular venous pressure or distention. CERVICAL LYMPH NODES: Nontender, nonenlarged. THYROID: Not enlarged. Nontender. No nodules. LUNGS: Respiratory effort, unlabored. CHEST: Normal curvature. No thoracic deformity. No chest wall tenderness. Percussion, resonant. Auscultation, clear. No wheezes, no rales, no rhonchi. CARDIOVASCULAR: Precordial exam, nondisplaced. No heaves or pericardial thrills. Rate and rhythm, regular. Heart sounds, normal S1, normal S2. No S3, no gallop, no rub. Systolic murmur, not heard. Diastolic murmur, not heard. EXTREMITIES: No cyanosis, no edema. Peripheral pulses, full and equal in all extremities, except as noted. No bruits appreciated. ABDOMEN: Soft, nondistended. Normal aorta. No bruit. Nontender. No masses. Liver, nontender, no hepatomegaly. Spleen, nontender, no splenomegaly. MUSCULOSKELETAL: No joint tenderness. No joint swelling. No erythema. NEUROLOGICAL: Normal gait, normal strength, normal tone. SKIN: Warm and dry. OVERALL IMPRESSION: Atrial fibrillation with rapid ventricular response. At this time, we will discontinue the Cordarone. He is getting much better rate control with sotalol. We will leave on sotalol. He has not had attempted DC cardioversion. He does have an echocardiogram that shows left atrium of 5.2; however, he is very symptomatic with the atrial fibrillation. We will try DC cardioversion. Further care depends upon the results with sotalol and DC HISTORY AND PHYSICAL [id number] RITA AVILA cardioversion. TRANSINT:[id number] Voice Confirmation ID: [id number] DOCUMENT ID: [id number] SWAPNIL REYES MD at 1147 CC: [id number] DICTATION DATE: 01/12/18 1256 SUPERVISOR THROWING DEPARTMENT: 01/12/18 1321 DIS IN 01/16/18 [facility] [address] [place] [address]
--- NOTE | ~2018-01-11 | HEMODYNAMI ---
PATIENT:RITA AVILA MEDICAL RECORD: [id number] : 38 [id number] AD[facility]ION DATE: 01/11/18 Generatedon:01/13/201814:02 Patient name: RITA AVILA Patient #: [id number] SS N: : 1940 Date of study: 01/13/2018 Page: Of Hemodynamic Procedure Report Patient Data Patient Demographics Procedure consent was obtained First Name: RITA Gender: Male Last Name: AUSTIN : 1940 Patient #: [id number] Age: 77 year(s) Race: Unknown Additional ID: [id number] Contact details [address]: [address] [place] [address] State: [place] City: [place] Zip code: [address] Past Medical History Allergies: No known allergies Admission Admission Data Admission Date: 01/11/2018 Admission Time: 20:30 Room #: D.2103 Lab Results Lab Result Date: 01/13/2018 Lab Result Time: 6:05 Biochemistry Name Units Result Min Max BUN mg/dl 29 --(----)-* 7 18 Creatinine mg/dl 0.9 --(-*--)-- 0.6 1.3 CBC Name Units Result Min Max Hematocrit % 37.9 *-(----)-- 42 54 Hemoglobin g/dl 12.3 *-(----)-- 13.5 17.5 Procedure Procedure Types Cath Procedure Diagnostic Procedure Cardioversion Procedure Description Procedure Date Procedure Date: 01/13/2018 Procedure Start Time: 13:49 Procedure End Time: 14:00 Procedure Staff Name Function Todd Mcguire MD Performing Physician Renny Cr RT Monitor Vanessa Urrutia RN Nurse Nicanor Marvin CRNA Additional personnel Procedure Data Cath Procedure Fluoroscopy Diagnostic fluoroscopy Total fluoroscopy Time: 0 time: 0 min min Diagnostic fluoroscopy Total fluoroscopy dose: 0 dose: 0 mGy mGy Contrast Material Contrast Material Type Amount (ml) Isovue 300 0 Estimated blood loss: 0 ml Procedure Complications No complications Procedure Medications Medication Administration Route Dosage Oxygen 6 l/min Refer to Anesthesia Notes for Sedation Medications Hemodynamics Rest HGB: 12.3 (g/dl) Heart Rate: 82 (bpm) Snapshots Pre Cath Intra NCS Post Cath Vital Signs Time Heart Resp SPO2 etCO2 NIBP (mmHg) Rhythm Pain Sedation Rate (ipm) (%) (mmHg) Status Level (bpm) 13:44:55 71 19 92 0 No Cuff NSR 0 (11) 10(A) , No pain 13:48:59 87 15 92 0 138/93(102) NSR 0 (11) 10(A) , No pain 13:53:19 57 16 95 0 100/66(77) NSR 0 (11) 9(A) , No pain 13:57:39 42 14 98 0 89/49(63) NSR 0 (11) 10(A) , No pain 14:00:27 36 17 100 0 111/66(80) NSR 0 (11) 10(A) , No pain Medications Time Medication Route Dose Verified Delivered Reason Notes Effectiv eness by by 13:40:04 Refer to Todd Mendez Anesthesia Shayla Urrutia RN Notes for Sedation Medications 13:40:55 Oxygen oximizer 6 Todd Mendez Per l/min Shayla Urrutia RN physician Procedure Log Time Note 13:32:10 Informed consent obtained and on chart 13:34:14 Diagnostic Cath status Elective 13:34:16 Vanessa Urrutia RN sent for patient. Start room use. 13:34:17 Time tracking: Regular hours 13:34:20 Plan of Care:Hemodynamics will remain stable., Cardiac rhythm will remain stable., Comfort level will be maintained., Respiratory function will remain adequate., Patient/ family verbilizes understanding of procedure., Procedure tolerated without complication., Recovers from procedure without complications.. 13:34:32 H&P Date Dictated: 01/11/2018 Within 30 days and on chart.. 13:35:43 Lab Result : BUN 29 mg/dl 13:35:43 Lab Result : Creatinine 0.9 mg/dl 13:35:43 Lab Result : Hematocrit 37.9 % 13:35:43 Lab Result : Hemoglobin 12.3 g/dl 13:35:46 Lab results completed and on chart. 13:38:42 Patient arrived from [facility] 3. Patient remains on bed/stretcher for procedure. 13:38:45 Warm blankets applied, and kerri hugger turned on for patient comfort. 13:38:47 Correct patient and procedure confirmed by team. 13:38:48 ECG and BP/O2 sat monitors applied to patient. 13:38:55 Quick Combo opened to sterile field. 13:39:08 Nicanor Marvin CRNA present and monitoring patient for TIVA. 13:39:27 Pre-procedure instructions explained to patient. 13:39:27 Pre-op teaching completed and patient verbalized understanding. 13:39:29 Family in patients room. 13:39:30 Patient NPO since Midnight. 13:40:04 Refer to Anesthesia Notes for Sedation Medications was administered by Vanessa Urrutia RN; ; 13:40:55 Oxygen 6 l/min oximizer was administered by Vanessa Urrutia RN; Per physician; 13:43:23 Patient allergic to No known allergies 13:43:24 Is the patient allergic to Iodine/contrast media? No. 13:43:25 Is patient on blood thinner?Yes 13:43:28 ACC The patient was administered the following blood thiners within the last 24 hours: ACCPlavix, Xarelto 13:43:29 Patient diabetic? No. 13:43:32 Previous problem with sedation/anesthesia? No ? 13:43:33 Snore? Yes 13:43:34 Sleep apnea? No 13:43:34 Deviated septum? No 13:43:35 Opens mouth fully? Yes 13:43:35 Sticks out tongue? Yes 13:43:38 Airway obstruction? Yes COPD 13:43:40 Dentures? No ? 13:43:50 Patient pain scale 0/10 ?. 13:43:53 IV patent on arrival in right hand with 0.9% NaCl at [facility]. 13:43:55 Alarms reviewed by Pa Caputo 13:44:00 Quick combo pads placed on patients chest and back. 13:44:05 Vital chart was started 13:44:24 Baseline sample Acquired. 13:44:49 Baseline sample Acquired. 13:45:08 Rhythm: atrial fibrillation 13:45:24 Full Disclosure recording started 13:48:32 Physician arrived 13:48:33 --------ALL STOP TIME OUT------ 13:48:33 Final Timeout: patient, procedure, and site verified with staff and physician. All members of the team are in agreement. 13:48:40 Physical assessment completed. ASA score P 3 - A patient with severe systemic disease as per Todd Mcguire MD. 13:48:43 Sedation plan: TIVA Medication:Propofol 13:48:50 Procedure started. 13:49:30 Defibrillator synced and charged to 275 Joules. 13:49:45 Shock delivered. 13:49:53 Patient cardioverted to sinus rhythm . 13:49:58 Procedure ended.(Physican Out) 13:52:54 Fluoroscopy time 00.00 minutes. 13:52:56 Flurop Dose total: 0 13:52:56 Fluoroscopy dose: 0 mGy 13:52:59 Contrast amount:Isovue 300 0ml. 13:53:10 Post-procedure physical assessment completed. ASA score P 3 - A patient with severe systemic disease as per Todd Mcguire MD. 13:53:16 Post procedure rhythm: sinus rhythm 13:53:17 Estimated blood loss: 0 ml 13:53:18 Post procedure instruction explained to patient.Patient verbalizes understanding. 13:53:19 Patient needs reinforcement of post procedure teaching. 13:53:34 Procedure and supply charges have been captured, reviewed, submitted and are correct. 13:53:37 Procedure Complication : No complications 13:53:39 See physician's report for complete and final results. 13:53:40 Report given to PCU. 14:00:44 Vital chart was stopped 14:00:48 Patient transfered to PCU with Stretcher. 14:00:50 Procedure ended. 14:00:50 Full Disclosure recording stopped 14:00:57 End room use (Document Last) Device Usage Item Manufacture Quantity Catalog Hospital Part Current Minimal Lot# / Name Number Charge Number Stock Hao Wynn al# Code Pairin 1 [id number] Combo Signature Audit Milton Stage Time Signature Unsigned Intra-Procedure 01/13/2018 Renny Cr 2:02:34 PM RT(R) Signatures Monitor : Renny Cr RT Signature : Date : Time : [facility] [address] [place] [address]
[~2018-01-11 18:37] MED LIST changes: +BAYER CHEWABLE81 MG PO; +ELIQUIS2.5 MG PO; +GABAPENTIN100 MG PO; +LIPITOR20 MG PO; +MELATONIN10 M1 PO; +MIRALAX17 GM PO; +NAPROXEN SODIU550 M1 PO; +PLAVIX75 MG PO; +PREDNISONE10 MG PO; +XARELTO15 MG PO
[2018-01-11 19:10] LABS: BASOPHILS 0.1 % (0-2); EOSINOPHILS 0 % (0-7); HEMATOCRIT 44.2 % (42.0-54.0); HEMOGLOBIN 14.9 g/dL (13.5-17.5); IMMATURE GRANULOCYTES 0.9 % (0-5); LYMPHOCYTES 4.7 % (15-50); MCH 31.6 pg (26.0-34.0); MCHC 33.7 g/dL (31.0-37.0); MCV 93.8 fL (80.0-100.0); MEAN PLATELET VOLUME 10.9 fL (7.4-10.4); MONOCYTES 11.2 % (2-11); NEUTROPHILS 83.1 % (40-80); RBC 4.71 10x6/uL (4.20-6.10); RDW 14.6 % (11.5-14.5)
[2018-01-11 19:11] LABS: PLATELET COUNT 198 10x3/uL (130-400)
[2018-01-11 19:19] LABS: INR 1.72 (0.85-1.17); PROTIME 19.6 SECONDS (11.6-15.0)
[2018-01-11 19:27] LABS: ALBUMIN 3.1 g/dL (3.4-5.0); ALKALINE PHOSPHATASE 72 U/L (46-116); ALT (SGPT) 126 U/L (10-68); BILIRUBIN - TOTAL 1.24 mg/dL (0.2-1.3); CALC OSMOLALITY 276 mosm/kg (275-300); CALCIUM 7.7 mg/dL (8.5-10.1); CARBON DIOXIDE 23.3 mmol/L (21.0-32.0); CHLORIDE - SERUM 101 mmol/L (98-107); CREATININE - SERUM 0.9 mg/dL (0.6-1.3); GLUCOSE 131 mg/dL (74-106); POTASSIUM - SERUM 4.3 mmol/L (3.5-5.1); PROTEIN - SERUM 6.2 g/dL (6.4-8.2); SODIUM 135 mmol/L (136-145); UREA NITROGEN 26 mg/dL (7-18); eGFR NON AFRICAN AMERICAN 87 mL/min (90-120)
[2018-01-11 19:43] LABS: PRO BNP 2165 pg/mL (0-450)
[2018-01-11 19:46] LABS: TROPONIN-I 0.205 ng/mL (0.000-0.060)
[2018-01-11 23:00] VITALS: BP 117/75
[2018-01-11] MEDS ORDERED: GABAPENTIN100 MG PO (23:41)
[2018-01-12] VITALS (13 sets, daily range): BP systolic 101–136; BP diastolic 68–92; BMI 28.1
[2018-01-12 00:52] LABS: APPEARANCE CLEAR (CLEAR); BILIRUBIN NEGATIVE (NEGATIVE); COLOR DK YELLOW (YELLOW); GLUCOSE NEGATIVE (NEGATIVE); KETONE NEGATIVE (NEGATIVE); NITRITE NEGATIVE (NEGATIVE); PROTEIN TRACE mg/dL (NEGATIVE); RED CELLS - URINE 0-5 /hpf (0-5); SPECIFIC GRAVITY 1.015 (1.005-1.020); WHITE CELLS - URINE RARE /hpf (0-5)
[2018-01-12 06:13] LABS: BASOPHILS 0 % (0-2); EOSINOPHILS 0.2 % (0-7); HEMATOCRIT 37.9 % (42.0-54.0); HEMOGLOBIN 12.3 g/dL (13.5-17.5); IMMATURE GRANULOCYTES 0.2 % (0-5); LYMPHOCYTES 9.5 % (15-50); MCH 30.8 pg (26.0-34.0); MCHC 32.5 g/dL (31.0-37.0); MEAN PLATELET VOLUME 10.5 fL (7.4-10.4); NEUTROPHILS 81.1 % (40-80); RBC 3.99 10x6/uL (4.20-6.10); RDW 14.9 % (11.5-14.5)
[2018-01-12 06:16] LABS: PLATELET COUNT 124 10x3/uL (130-400); WBC 8.7 10x3/uL (4.8-10.8)
[2018-01-12 07:02] LABS: ALBUMIN 2.7 g/dL (3.4-5.0); ALKALINE PHOSPHATASE 59 U/L (46-116); ALT (SGPT) 100 U/L (10-68); BILIRUBIN - TOTAL 1.26 mg/dL (0.2-1.3); CALC OSMOLALITY 278 mosm/kg (275-300); CALCIUM 7.8 mg/dL (8.5-10.1); CHLORIDE - SERUM 103 mmol/L (98-107); CREATININE - SERUM 0.9 mg/dL (0.6-1.3); GLUCOSE 85 mg/dL (74-106); POTASSIUM - SERUM 4.3 mmol/L (3.5-5.1); PROTEIN - SERUM 5.3 g/dL (6.4-8.2); SODIUM 137 mmol/L (136-145); UREA NITROGEN 29 mg/dL (7-18); eGFR NON AFRICAN AMERICAN 87 mL/min (90-120)
[2018-01-12 07:09] LABS: APTT 32.9 SECONDS (22.8-39.4)
[2018-01-12 07:18] LABS: INR 1.28 (0.85-1.17); PROTIME 15.5 SECONDS (11.6-15.0)
[2018-01-13 04:00] VITALS: BP 116/70
[2018-01-13 09:01] VITALS: BP 124/86
[2018-01-13 11:11] VITALS: BP 126/78
[2018-01-13 12:58] VITALS: BP 124/86
[2018-01-13 14:58] VITALS: BP 114/62
[2018-01-13 21:11] VITALS: BP 122/65
[2018-01-14 04:27] VITALS: BP 120/52
[2018-01-14 08:36] VITALS: BP 138/54
[2018-01-14 11:01] VITALS: BP 135/68
[2018-01-14 14:02] VITALS: BP 115/53
[2018-01-14 17:18] VITALS: BP 103/55
[2018-01-14 20:00] VITALS: BP 114/50
[2018-01-15 04:00] VITALS: BP 130/60
[2018-01-15 10:41] VITALS: BP 131/61
[2018-01-15 13:28] VITALS: BP 111/64
[2018-01-15 17:54] VITALS: BP 131/84
[2018-01-15 20:16] VITALS: BP 110/58
[2018-01-16 02:22] VITALS: BP 109/79
[2018-01-16 08:34] VITALS: BP 116/75
[2018-01-16 10:57] VITALS: BMI 29.4
[2018-01-16 11:50] VITALS: BP 99/59
[2018-01-16 16:22] VITALS: BP 101/60
[2018-01-16] MEDS ORDERED: BETAPACE 80 MG80 MG PO (16:30)
[2018-01-16] MEDS ORDERED: STERAPRED DS 1210 MG PO (16:33)
== END 2018-01-16 18:11 | DRG 310 ==
LOC: D.ER 18:37 → D.SDCHOLD 20:30 → D.ICU 20:30 → D.M2 20:30 → D.ICU 22:37 → D.M2 01-12 22:07
PROVIDERS: Emergency Medicine; Family Medicine; Internal Medicine Interventional Cardiology
DX: I48.91 Unspecified atrial fibrillation (principal); R06.03 Acute respiratory distress; I48.92 Unspecified atrial flutter; I25.10 Atherosclerotic heart disease of native coronary artery without angina pectoris; E78.5 Hyperlipidemia, unspecified; J44.9 Chronic obstructive pulmonary disease, unspecified; Z86.711 Personal history of pulmonary embolism; Z79.01 Long term (current) use of anticoagulants

== ENCOUNTER 2018-01-16 14:55 | Inpatient (IN) | payer MEDICARE, OTHER ==
[~2018-01-16] VITALS: Ht 190.5 cm; Wt 104.3 kg
--- NOTE | ~2018-01-16 | RHP ---
PATIENT: RITA AVILA MEDICAL RECORD: [id number] ACCOUNT: [id number] LOCATION:[facility]1119 : 38 ADMISSION DATE: 01/16/18 REHABILITATION HISTORY AND PHYSICAL EXAMINATION POST ADMISSION PHYSICIAN EXAMINATION DATE OF ADMISSION TO THE REHAB: 01/16/2018. ADMITTING DIAGNOSES: Atrial fibrillation with rapid response with DC cardioversion. HISTORY OF PRESENT ILLNESS: The patient admitted to inpatient rehabilitation for cardiac/atrial fibrillation with rapid ventricular response requiring DC cardioversion. He is a 77-year-old gentleman who was admitted from 01/08/2018 to 01/11/2018 and was discharged home, was only home approximately 3 hours before he had chest pain, shortness of breath, brought back to the hospital via EMS. He was found to be in AFib with rapid ventricular response, heart rate in the 160s, required DC cardioversion by cardiology. He continues on telemetry. He is on 4 liters of high flow oxymizer oxygen. He recently had a PTCA with LAD with Dr. Servin, history of pulmonary embolus, history of AFib. Atrial fibrillation had been present for approximately 2 months prior to his acute hospital admit. He has been on Eliquis or Xarelto anticoagulant for the past 2 months to prevent a pulmonary embolism. He was living at home with his and was independent with ADLs and mobility prior to wearing oxygen and he has not been having to wear it very often. He is currently set up for moderate assist with ADLs, moderate to max assist with mobility with increased shortness of breath and increased O2 requirements. He and his plan for him to return home hopefully to his prior level of functioning or better. COMORBIDITIES: In this patient include atrial fibrillation with rapid ventricular response, history of pulmonary embolism, coronary artery disease, atrial fib, Xarelto anticoagulation, hyperlipidemia, COPD, hypoxia, dyspnea, elevated BNP. PAST MEDICAL HISTORY: Significant for COPD, interstitial lung disease, anxiety, hypertension, atrial fib, cataract surgery, sinuses, BPH, acid reflux, fissures, arthritis, and gout. PAST SURGICAL HISTORY: Includes gallbladder surgery. He has had a fistula repair, angioplasty with stent placement. ALLERGIES: No known drug allergies. CURRENT MEDICATIONS: Include Zoloft 25 mg daily. He is on Xarelto 15 mg b.i.d. with meals, Protonix 40 mg daily, Plavix 75 mg daily, Lipitor 80 mg daily, aspirin 325 mg daily, melatonin 9 mg p.o. q.h.s. He is on a tapering dose of prednisone, some Betapace 80 mg b.i.d., MiraLax 17 g b.i.d., naproxen 500 mg b.i.d., Neurontin 100 mg b.i.d., Xanax 0.25 mg t.i.d. p.r.n., and allopurinol 300 mg daily. HABITS: No current alcohol or tobacco use. He is a past smoker. FAMILY HISTORY: Noncontributory. SOCIAL HISTORY: The patient hopes to return back home with his and get HISTORY AND PHYSICAL [id number] RITA AVILA back to his prior level of functioning. REVIEW OF SYSTEMS: GENERAL: Does complain of weakness. HEENT: He denies cold, cough, or congestion. CARDIOVASCULAR: Denies chest pain. PHYSICAL EXAMINATION: VITAL SIGNS: Stable, afebrile. GENERAL: Elderly gentleman in no acute distress, alert upon exam. HEENT: Normocephalic and atraumatic. Mucosa moist. NECK: Supple. No lymphadenopathy. LUNGS: Clear at this time. HEART: Irregular rate and rhythm. ABDOMEN: Benign. EXTREMITIES: No clubbing, cyanosis or edema. NEUROLOGIC: Intact. LABORATORY DATA: His white count is 11,000, H&H 12.3 and 37.9, his platelet count is 211. His sodium is 138, potassium 4.7, BUN and creatinine of 43 and 1.0, and blood sugar is noted to be 106. ASSESSMENT: This is a 77-year-old gentleman admitted to the rehab with a working diagnosis of cardiac related problems secondary to atrial fibrillation with rapid ventricular response. The patient has potential to make improvement. We instituted the following multidisciplinary therapies including to, but not limited to physical, occupational, respiratory, speech, nutritional services, prosthetics and orthotics. Given his complex condition and risk for more complications, rehabilitation services cannot be provided at a lower level of care such as retirement facility. PLAN: 1. Admit to [facility] rehab for intensive inpatient therapy to include the following disciplines: A. Physical therapy to improve gait, all transfer skills and bed mobility to a modified independent level. B. Occupational therapy to improve activities of daily living to a modified independent level. C. Case management to assist with discharge planning and placement options. D. Nutrition to assist with nutritional needs. E. Rehabilitation nursing to assist in monitoring the patient's underlying medical conditions and to assist with any type of bowel or bladder management. 2. The patient's current medication and medical care will be continued. 3. The patient will be placed on standard fall precautions. 4. The patient's estimated length of stay is approximately 7 to 10 days. 5. Discuss this patient during care team staff meeting this week. I am going to follow him up on Saturday morning. TRANSINT:[id number] Voice Confirmation ID: [id number] DOCUMENT ID: [id number] ROSAURA notes whether there has been none or any medical/functional change since admission: - No change since prescreen. HISTORY AND PHYSICAL [id number] RITA AVILA attests patient continues to be appropriate for IRF: - Continues to be appropriate. VANNESA MCINTYRE MD CC: [id number] DICTATION DATE: 01/17/18 0853 FAMILY MEDICINE PHYSICIAN ASSISTANT: 01/17/18 0957 ADM IN [facility] [address] [place] [address]
[2018-01-16] MEDS ORDERED: BETAPACE 80 MG80 MG PO (16:30)
[2018-01-16] MEDS ORDERED: STERAPRED DS 1210 MG PO (16:33)
[2018-01-16 21:16] VITALS: BP 112/78
[2018-01-16 22:49] VITALS: BP 112/72; BMI 28.8
[2018-01-17 06:45] LABS: BASOPHILS 0 % (0-2); EOSINOPHILS 0.3 % (0-7); HEMATOCRIT 37.9 % (42.0-54.0); HEMOGLOBIN 12.3 g/dL (13.5-17.5); IMMATURE GRANULOCYTES 0.5 % (0-5); LYMPHOCYTES 6.3 % (15-50); MCH 30.8 pg (26.0-34.0); MCHC 32.5 g/dL (31.0-37.0); MCV 94.8 fL (80.0-100.0); MEAN PLATELET VOLUME 10.5 fL (7.4-10.4); MONOCYTES 8.8 % (2-11); NEUTROPHILS 84.1 % (40-80); RDW 14.7 % (11.5-14.5)
[2018-01-17 06:53] LABS: CALC OSMOLALITY 286 mosm/kg (275-300); CALCIUM 7.5 mg/dL (8.5-10.1); CHLORIDE - SERUM 103 mmol/L (98-107); GLUCOSE 106 mg/dL (74-106); POTASSIUM - SERUM 4.7 mmol/L (3.5-5.1); SODIUM 138 mmol/L (136-145); UREA NITROGEN 43 mg/dL (7-18); eGFR NON AFRICAN AMERICAN 77 mL/min (90-120)
[2018-01-17 06:57] LABS: PLATELET COUNT 211 10x3/uL (130-400)
[2018-01-17 08:35] VITALS: BP 116/73
[2018-01-17 14:16] VITALS: Ht 190.5 cm; Wt 104.3 kg
[2018-01-18 00:27] VITALS: BP 134/79
[2018-01-18 14:29] VITALS: BP 118/71
[2018-01-18 21:45] VITALS: BP 117/74
[2018-01-19 08:37] VITALS: BP 110/57
[2018-01-19] MEDS ORDERED: PROTONIX40 MG PO (09:57)
[2018-01-19] MEDS ORDERED: ZOFRAN4 MG PO (09:58)
[2018-01-19 10:22] LABS: ALBUMIN 2.7 g/dL (3.4-5.0); ALKALINE PHOSPHATASE 163 U/L (46-116); ALT (SGPT) 165 U/L (10-68); CALC OSMOLALITY 296 mosm/kg (275-300); CALCIUM 7.3 mg/dL (8.5-10.1); CARBON DIOXIDE 29.1 mmol/L (21.0-32.0); CHLORIDE - SERUM 103 mmol/L (98-107); CREATININE - SERUM 1.3 mg/dL (0.6-1.3); GLUCOSE 175 mg/dL (74-106); POTASSIUM - SERUM 5.2 mmol/L (3.5-5.1); PROTEIN - SERUM 5.4 g/dL (6.4-8.2); SODIUM 141 mmol/L (136-145); UREA NITROGEN 45 mg/dL (7-18); eGFR NON AFRICAN AMERICAN 57 mL/min (90-120)
[2018-01-19 10:23] LABS: BASOPHILS 0.9 % (0-2); EOSINOPHILS 1.2 % (0-7); HEMOGLOBIN 13.3 g/dL (13.5-17.5); LYMPHOCYTES 44.8 % (15-50); MCH 31.4 pg (26.0-34.0); MCHC 31.7 g/dL (31.0-37.0); MCV 99.3 fL (80.0-100.0); MEAN PLATELET VOLUME 10.8 fL (7.4-10.4); MONOCYTES 3.2 % (2-11); NEUTROPHILS 45.9 % (40-80); PLATELET COUNT 216 10x3/uL (130-400); RBC 4.23 10x6/uL (4.20-6.10); RDW 15.2 % (11.5-14.5); WBC 9.8 10x3/uL (4.8-10.8)
[2018-01-19 10:35] LABS: CKMB 0.9 U/L (0.0-3.6); CREATINE KINASE 103 UL (21-232); MAGNESIUM - SERUM 2.4 mg/dL (1.8-2.4); PHOSPHOROUS 5.1 mg/dL (2.5-4.9)
[2018-01-19 11:15] LABS: INR 1.74 (0.85-1.17); PROTIME 19.8 SECONDS (11.6-15.0)
== END 2018-01-19 10:17 | disposition short-term general hospital (02) | DRG 310 ==
LOC: D.REHAB 14:55
PROVIDERS: Emergency Medicine; Internal Medicine Nephrology
DX: I48.91 Unspecified atrial fibrillation (principal); Z86.711 Personal history of pulmonary embolism; I25.10 Atherosclerotic heart disease of native coronary artery without angina pectoris; Z79.01 Long term (current) use of anticoagulants; E78.5 Hyperlipidemia, unspecified; J44.9 Chronic obstructive pulmonary disease, unspecified; R79.89 Other specified abnormal findings of blood chemistry; Z87.891 Personal history of nicotine dependence; I48.92 Unspecified atrial flutter

== ENCOUNTER 2018-01-19 12:28 | Inpatient (IN) | payer MEDICARE, OTHER ==
[~2018-01-19] VITALS: Ht 190.5 cm; Wt 117.1 kg
[2018-01-19] VITALS (51 sets, daily range): BP systolic 46–171; BP diastolic 00–138; Ht 190.5 cm; Wt 117.1 kg
[~2018-01-19 12:28] MED LIST changes: +BETAPACE 80 MG80 MG PO; +PROTONIX40 MG PO; +STERAPRED DS 1210 MG PO; +ZOFRAN4 MG PO
[2018-01-19 14:28] LABS: HEMATOCRIT 38.3 % (42.0-54.0); HEMOGLOBIN 12.5 g/dL (13.5-17.5)
[2018-01-19 19:31] LABS: HEMATOCRIT 38.1 % (42.0-54.0); HEMOGLOBIN 12.7 g/dL (13.5-17.5)
[2018-01-20] VITALS (28 sets, daily range): BP systolic 48–135; BP diastolic 00–91
[2018-01-20 03:27] LABS: HEMATOCRIT 30.6 % (42.0-54.0); HEMOGLOBIN 9.8 g/dL (13.5-17.5); MCH 30.7 pg (26.0-34.0); MCV 95.9 fL (80.0-100.0); MEAN PLATELET VOLUME 10.2 fL (7.4-10.4); PLATELET COUNT 223 10x3/uL (130-400); RBC 3.19 10x6/uL (4.20-6.10); RDW 15.4 % (11.5-14.5); WBC 33.7 10x3/uL (4.8-10.8)
[2018-01-20 03:51] LABS: EOSINOPHILS 1 % (0-7); LYMPHOCYTES 2 % (15-50); MONOCYTES 6 % (2-11); NEUTROPHILS 89 % (40-80); PLATELET ESTIMATE NORMAL
[2018-01-20 03:55] LABS: PROTIME 96.3 SECONDS (11.6-15.0)
[2018-01-20 03:56] LABS: APTT 161.1 SECONDS (22.8-39.4); INR 12.97 (0.85-1.17)
[2018-01-20 03:59] LABS: ALBUMIN 2.5 g/dL (3.4-5.0); BILIRUBIN - TOTAL 3.76 mg/dL (0.2-1.3); MAGNESIUM - SERUM 2.1 mg/dL (1.8-2.4); PROTEIN - SERUM 4.8 g/dL (6.4-8.2)
[2018-01-20 04:00] LABS: PHOSPHOROUS 7.5 mg/dL (2.5-4.9)
[2018-01-20 04:01] LABS: ANION GAP 23.9 mmol/L (8-16); CARBON DIOXIDE 17.7 mmol/L (21.0-32.0); CREATININE - SERUM 2.7 mg/dL (0.6-1.3); POTASSIUM - SERUM 6.6 mmol/L (3.5-5.1)
[2018-01-20 04:02] LABS: CALCIUM 6.6 mg/dL (8.5-10.1)
== END 2018-01-20 11:58 | DRG 208 ==
LOC: D.ICU 12:28
PROVIDERS: Internal Medicine Nephrology; Internal Medicine Pulmonary Disease
PROC: 5A12012 Performance of Cardiac Output, Single, Manual (ICD-10-PCS; principal; 2018-01-19)
PROC: 5A1945Z Respiratory Ventilation, 24-96 Consecutive Hours (ICD-10-PCS; 2018-01-19)
PROC: 0BH17EZ Insertion of Endotracheal Airway into Trachea, Via Natural or Artificial Opening (ICD-10-PCS; 2018-01-19)
PROC: 02HV33Z Insertion of Infusion Device into Superior Vena Cava, Percutaneous Approach (ICD-10-PCS; 2018-01-19)
DX: J96.01 Acute respiratory failure with hypoxia (principal); J69.0 Pneumonitis due to inhalation of food and vomit; I50.31 Acute diastolic (congestive) heart failure; I13.0 Hypertensive heart and chronic kidney disease with heart failure and stage 1 through stage 4 chronic kidney disease, or unspecified chronic kidney disease; J98.11 Atelectasis; G93.1 Anoxic brain damage, not elsewhere classified; I46.9 Cardiac arrest, cause unspecified; J44.9 Chronic obstructive pulmonary disease, unspecified; I25.10 Atherosclerotic heart disease of native coronary artery without angina pectoris; I48.91 Unspecified atrial fibrillation; Z79.01 Long term (current) use of anticoagulants; Z86.711 Personal history of pulmonary embolism; E11.22 Type 2 diabetes mellitus with diabetic chronic kidney disease; N18.9 Chronic kidney disease, unspecified; E11.40 Type 2 diabetes mellitus with diabetic neuropathy, unspecified; E55.9 Vitamin D deficiency, unspecified; I27.20 Pulmonary hypertension, unspecified; K21.9 Gastro-esophageal reflux disease without esophagitis